=== PATIENT | female | born 1985 | race Caucasian/White ===

== ENCOUNTER 2016-04-25 20:15 | Outpatient (CLI) | payer MEDICAID ==
[~2016-04-25 20:15] MED LIST: ONDA4TAB10 PO; Phenergan HOMEMISC
[2016-04-25 20:37] LABS: AMNI LOT 5540986
[2016-04-25 20:50] LABS: AMNI OBC PASS; AMNISURE NEGATIVE (NEGATIVE)
== END 2016-04-25 22:25 | disposition home or self-care (01) ==
LOC: LDOP 20:15
PROVIDERS: ATTEND Obstetrics & Gynecology
DX: O42.913 Preterm premature rupture of membranes, unspecified as to length of time between rupture and onset of labor, third trimester (principal); O21.0 Mild hyperemesis gravidarum; O99.213 Obesity complicating pregnancy, third trimester; Z3A.31 31 weeks gestation of pregnancy
CPT/HCPCS: 59025; 81001; 84112; 87086; 99211; G0463

== ENCOUNTER 2016-05-17 03:14 | Observation (INO) | payer MEDICAID ==
[~2016-05-17] VITALS: Ht 165.1 cm; Wt 120.0 kg
[2016-05-17] MEDS ORDERED: TERBUTALINE 1 MG/ML, 1ML ONE (03:43)
[2016-05-17] MEDS ORDERED: LACTATED RINGERS 1,000 ML IVBOLUS ONE (04:00)
[2016-05-17] MEDS ORDERED: TERBUTALINE 1 MG/ML, 1ML SQ ONE (04:00)
[2016-05-17] MEDS ORDERED: D5%-LACTATED RINGERS 1,000 ML IV SCH (05:00)
[2016-05-17] MEDS ORDERED: FENTANYL PF 100 MCG/2ML ONE (05:37)
[2016-05-17] MEDS ORDERED: ONDANSETRON 2MG/ML, 2ML ONE (05:37)
[2016-05-17] MEDS ORDERED: ONDANSETRON 2MG/ML, 2ML IVPush ONE (06:00)
[2016-05-17] MEDS ORDERED: FENTANYL PF 100 MCG/2ML IVPush PRN (06:00)
[2016-05-17] MEDS ORDERED: PROMETHAZINE 25 MG/ML, 1ML IM ONE (08:00)
[2016-05-17] MEDS ORDERED: MEPERIDINE/PF 100 MG/ML IM ONE (08:00)
[2016-05-17] MEDS ORDERED: PROMETHAZINE 25 MG/ML, 1ML ONE (08:21)
[2016-05-17] MEDS ORDERED: MEPERIDINE/PF 100 MG/ML ONE (08:22)
[2016-05-17] MEDS ORDERED: LACTATED RINGERS 1,000 ML IV SCH ×2 (12:30)
[2016-05-18] MEDS ORDERED: NITR100C56 PO (11:34)
[2016-05-21] MEDS ORDERED: PREN1TAB27 PO (12:36)
[2016-05-21] MEDS ORDERED: PANT40TA3 PO (12:37)
[2016-05-24] MEDS ORDERED: OXYC-302 PO (07:38)
[2016-05-24] MEDS ORDERED: FERR325T23 PO (07:43)
[2016-05-24] MEDS ORDERED: IBUP200T48 PO (07:43)
[2016-05-24] MEDS ORDERED: SENN-25 PO (07:44)
== END 2016-05-17 15:55 | disposition home or self-care (01) ==
LOC: LDOP 03:14 → LDIP 03:42
PROVIDERS: ADMIT Obstetrics & Gynecology; ATTEND Obstetrics & Gynecology
DX: O62.9 Abnormality of forces of labor, unspecified (principal); O23.43 Unspecified infection of urinary tract in pregnancy, third trimester; Z3A.34 34 weeks gestation of pregnancy
CPT/HCPCS: 59025; 81001; 96361; 96372; 96374; 96375; 99211; G0378; J2175; J2405; J2550; J3010; J3105; J7120; 96360; G0463; J7121

== ENCOUNTER 2017-11-10 10:50 | Emergency (ER) | payer MEDICAID, OTHER ==
[~2017-11-10] VITALS: Ht 162.6 cm; Wt 124.7 kg
[~2017-11-10 10:50] MED LIST changes: +FERR325T23 PO; +IBUP200T49 PO; +NITR100C56 PO; +OXYC-302 PO; +PANT40TA3 PO; +PREN1TAB27 PO; +SENN-25 PO
[2017-11-10 12:13] VITALS: BP 118/84
== END 2017-11-10 12:15 | disposition home or self-care (01) ==
LOC: ED 11:59
DX: H81.13 Benign paroxysmal vertigo, bilateral (principal); H81.03 Meniere's disease, bilateral; G43.909 Migraine, unspecified, not intractable, without status migrainosus
CPT/HCPCS: 70450; 93005; 99284

== ENCOUNTER 2019-07-05 16:51 | Inpatient (IN) | payer MEDICAID ==
[~2019-07-05] VITALS: Ht 165.1 cm; Wt 124.0 kg
[2019-07-05] MEDS ORDERED: ACETAMINOPHEN 325 MG TABLET PO PRN (18:30)
[2019-07-05] MEDS ORDERED: DOCUSATE 100 MG CAPSULE PO PRN (18:30)
[2019-07-05] MEDS ORDERED: BISACODYL 10 MG SUPP PR PRN (18:30)
[2019-07-05] MEDS ORDERED: POLYETHYLENE GLYCOL 17 GM PACKET PO PRN (18:30)
[2019-07-05 19:15] VITALS: BP_SYST 121; BP_SYST 123; BP_DIAS 85
[2019-07-05 19:57] LABS: ALBUMIN 3.7 g/dL (3.4-5.0); BILIRUBIN, DIRECT 0.1 mg/dL (0.1-0.2)
[2019-07-05 20:23] LABS: BILIRUBIN,INDIRECT 0.4 mg/dL (0.0-2.0); BILIRUBIN,TOTAL 0.5 mg/dL (0.2-1.0); CHOL/HDL RATIO 4.4; LDL/HDL RATIO 2.8 (0.5-3.0); TOTAL PROTEIN 7.9 g/dL (6.4-8.2)
[2019-07-06 01:12] VITALS: BP 121/85
[2019-07-06 07:24] VITALS: BP 104/70
[2019-07-06] MEDS: FLUOXETINE HCL 20 MG CAPSULE PO SCH (15:59)
[2019-07-06 16:17] LABS: BASOPHILS # (AUTO) 0.05 x10^3/uL (0-0.1); BASOPHILS % (AUTO) 1 % (0-1); EOSINOPHILS # (AUTO) 0.05 x10^3/uL (0-0.4); EOSINOPHILS % (AUTO) 1 % (1-7); LYMPHOCYTES % (AUTO) 29 % (22-44); MD NO; MEAN CORPUSCULAR HEMOGLOBIN 29.6 pg (27.0-34.8); MEAN CORPUSCULAR HGB CONC 33.6 g/dL (32.4-35.8); MEAN CORPUSCULAR VOLUME 88.2 fL (80-100); MEAN PLATELET VOLUME 8.2 fL (7.4-10.4); MONOCYTES # (AUTO) 0.56 x10^3/uL (0.2-0.8); MONOCYTES % (AUTO) 6 % (2-9); NEUTROPHILS # (AUTO) 6.12 x10^3/uL (1.8-6.8); NEUTROPHILS % (AUTO) 64 % (42-75); PLATELET COUNT 312 x10^3/uL (130-400); RED BLOOD COUNT 4.89 x10^6/uL (3.82-5.3); RED CELL DISTRIBUTION WIDTH 12.7 % (9.6-15.2)
[2019-07-06 16:26] LABS: ANION GAP 5 mmol/L (5-15); CALCIUM 8.8 mg/dL (8.5-10.1); CHLORIDE 109 mmol/L (98-107)
[2019-07-06 16:37] LABS: CREATININE 0.74 mg/dL (0.55-1.02)
[2019-07-06 19:53] VITALS: BP 111/72
[2019-07-07 07:20] VITALS: BP 120/80
[2019-07-07] MEDS: FLUOXETINE HCL 20 MG CAPSULE PO SCH (08:55)
[2019-07-07 19:54] VITALS: BP 117/86
[2019-07-08 07:38] VITALS: BP 121/76
[2019-07-08] MEDS: FLUOXETINE HCL 20 MG CAPSULE PO SCH (17:25)
[2019-07-08 19:49] VITALS: BP 126/84
[2019-07-09 07:00] VITALS: BP 124/88
[2019-07-09] MEDS: FLUOXETINE HCL 20 MG CAPSULE PO SCH (17:32)
[2019-07-09 19:19] VITALS: BP 140/89
[2019-07-10 07:46] VITALS: BP 128/94
[2019-07-10] MEDS: FLUOXETINE HCL 20 MG CAPSULE PO SCH (18:25)
[2019-07-10 19:10] VITALS: BP 131/91
[2019-07-11 07:32] VITALS: BP 111/74
[2019-07-11] MEDS ORDERED: FLUO20CA23 PO (09:58)
[2019-07-11] MEDS ORDERED: HYDR-826 PO (09:58)
== END 2019-07-11 11:15 | disposition home or self-care (01) | DRG 885 ==
LOC: 3E 20:10
PROVIDERS: ADMIT Psychiatry & Neurology Psychosomatic Medicine; ATTEND Psychiatry & Neurology Psychosomatic Medicine
DX: F33.2 Major depressive disorder, recurrent severe without psychotic features (principal); R45.851 Suicidal ideations; Z68.42 Body mass index [BMI] 45.0-49.9, adult; E66.01 Morbid (severe) obesity due to excess calories; F41.0 Panic disorder [episodic paroxysmal anxiety]; F41.1 Generalized anxiety disorder; Z79.899 Other long term (current) drug therapy; Z83.3 Family history of diabetes mellitus; Z87.891 Personal history of nicotine dependence; Z88.5 Allergy status to narcotic agent
CPT/HCPCS: 36415; 80048; 80061; 80076; 82607; 83036; 84443; 85025; 93005; Q0177